=== PATIENT | female | born 1985 | race Caucasian/White ===

== ENCOUNTER → 2020-01-02 | Outpatient (CLI) | payer BC ==
--- NOTE | 2020-01-02 17:55 | RAD ---
Examination: 1. Bilateral diagnostic mammogram 2. Bilateral targeted breast ultrasound. INDICATION: 34-year-old woman with a family history of breast cancer presents with chronic bilateral vein nipple discharge and bilateral breast subareolar sonographic finding is recommended for short-term imaging follow-up follow-up. COMPARISON: Bilateral mammogram of 09/21/2019 and bilateral Limited breast ultrasound of 09/21/2019. TECHNIQUE: Bilateral CC and MLO views were obtained with 2-D and 3-D technique and reviewed with computer-aided detection. Targeted ultrasound of the subareolar breasts bilaterally was also performed FINDINGS: Heterogeneously dense breast parenchyma. Bilateral mammogram shows no dominant mass, suspicious calcification or architectural distortion. Stable oval mass in the right upper quadrant posterior right breast compatible with a benign intramammary lymph node. Targeted ultrasound of the subareolar breasts bilaterally revealed dense, fibrous tissue with no dominant mass, architectural distortion or otherwise suspicious sonographic findings. No ectatic ducts. No intraluminal filling defects. IMPRESSION: Negative bilateral mammogram and targeted bilateral subareolar breast ultrasound. Recommend clinical management which may include biopsy of any clinically suspicious findings if present. In the absence of any clinically suspicious findings, recommend routine screening in one year, in addition to ongoing clinical management. BI-RADS Category 1 Negative Patient entered into a reminder system with targeted due date for next mammogram. Electronically signed by: Trevor Chan MD (01/02/2020 5:52 PM) [id number]
== END ==
LOC: MAMMO 13:41
PROVIDERS: ATTEND Nurse Practitioner Family
DX: R92.8 Other abnormal and inconclusive findings on diagnostic imaging of breast (principal)
CPT/HCPCS: 76641; 77066; G0279; 77062